=== PATIENT | male | born 1940 | race Caucasian/White ===

== ENCOUNTER 2016-07-20 04:40 | Emergency (ER) | payer MEDICARE, OTHER ==
[~2016-07-20 04:40] MED LIST: ALPRAZOLAM0.25 MG PO; AMARYL1 MG PO; AMLODIPINE BES1 CAP PO; AMLODIPINE BESY1 C17 PO; COREG CR10 M1 PO; EFFEXOR XR75 M1 PO; LEVAQUIN 5500 MG/TA1 PO; TESSALON PERLE100 MG PO; WELCHOL 625MG625 MG PO
[2016-07-20] MEDS ORDERED: ONDANSETRON HYDR4 M1 PO (07:42)
== END 2016-07-20 08:00 | disposition home or self-care (01) ==
LOC: ED 04:40
DX: R11.2 Nausea with vomiting, unspecified (principal)

== ENCOUNTER 2017-02-19 23:25 | Emergency (ER) | payer MEDICARE, OTHER ==
[~2017-02-19] VITALS: Ht 172.7 cm; Wt 100.0 kg
[~2017-02-19 23:25] MED LIST changes: +ONDANSETRON HYDR4 M1 PO
[2017-02-19] MEDS ORDERED: LOSARTAN POTASS50 MG PO (23:53)
[2017-02-19] MEDS ORDERED: OMEPRAZOLE40 MG PO (23:53)
[2017-02-19] MEDS ORDERED: NORVASC 10MG10 MG PO (23:54)
[2017-02-20] MEDS ORDERED: NAPROXEN500 MG PO (02:09)
[2017-02-20 02:35] VITALS: BP 160/89
== END 2017-02-20 02:35 | disposition home or self-care (01) ==
LOC: ED 23:25
DX: M10.041 Idiopathic gout, right hand (principal); E11.9 Type 2 diabetes mellitus without complications; Z79.84 Long term (current) use of oral hypoglycemic drugs; I10 Essential (primary) hypertension; Z87.891 Personal history of nicotine dependence

== ENCOUNTER 2017-03-18 09:51 | Outpatient (RCR) | payer MEDICARE, OTHER ==
[~2017-03-18 09:51] MED LIST changes: +LOSARTAN POTASS50 MG PO; +NAPROXEN500 MG PO; +NORVASC 10MG10 MG PO; +OMEPRAZOLE40 MG PO
== END 2017-03-20 15:16 | disposition home or self-care (01) ==
LOC: OPPGERO 09:51
DX: F33.1 Major depressive disorder, recurrent, moderate (principal); F43.10 Post-traumatic stress disorder, unspecified; X58.XXXD Exposure to other specified factors, subsequent encounter

== ENCOUNTER 2017-03-22 09:00 | Outpatient (RCR) | payer MEDICARE, OTHER | END 2017-04-21 16:23 | disposition still patient (30) | LOC: OPPGERO 09:00 | DX: F33.1 Major depressive disorder, recurrent, moderate (principal); F43.10 Post-traumatic stress disorder, unspecified ==

== ENCOUNTER 2017-04-22 09:57 | Outpatient (RCR) | payer MEDICARE, OTHER | END 2017-05-21 12:59 | LOC: OPPGERO 09:57 | DX: F33.1 Major depressive disorder, recurrent, moderate (principal); F43.10 Post-traumatic stress disorder, unspecified ==

== ENCOUNTER 2017-05-22 09:00 | Outpatient (RCR) | payer MEDICARE, OTHER | END 2017-06-19 15:34 | LOC: OPPGERO 09:00 | DX: F33.1 Major depressive disorder, recurrent, moderate (principal); F43.10 Post-traumatic stress disorder, unspecified ==

== ENCOUNTER 2017-07-23 10:46 | Outpatient (RCR) | payer MEDICARE, OTHER | END 2017-08-19 14:17 | LOC: OPPGERO 10:46 | DX: F33.1 Major depressive disorder, recurrent, moderate (principal); F43.10 Post-traumatic stress disorder, unspecified; K21.9 Gastro-esophageal reflux disease without esophagitis; Z88.2 Allergy status to sulfonamides ==

== ENCOUNTER 2017-08-20 10:17 | Outpatient (RCR) | payer MEDICARE, OTHER | END 2017-09-18 11:18 | LOC: OPPGERO 10:17 | DX: F33.1 Major depressive disorder, recurrent, moderate (principal); F43.10 Post-traumatic stress disorder, unspecified; K21.9 Gastro-esophageal reflux disease without esophagitis; Z88.1 Allergy status to other antibiotic agents; Z88.2 Allergy status to sulfonamides ==

== ENCOUNTER 2017-09-21 09:13 | Outpatient (RCR) | payer MEDICARE, OTHER | END 2017-10-19 13:14 | LOC: OPPGERO 09:13 | DX: F33.1 Major depressive disorder, recurrent, moderate (principal); F43.10 Post-traumatic stress disorder, unspecified; K21.9 Gastro-esophageal reflux disease without esophagitis; N40.0 Benign prostatic hyperplasia without lower urinary tract symptoms; Z88.2 Allergy status to sulfonamides ==

== ENCOUNTER 2017-10-20 08:54 | Outpatient (RCR) | payer MEDICARE, OTHER | END 2017-11-19 13:49 | LOC: OPPGERO 08:54 | DX: F33.1 Major depressive disorder, recurrent, moderate (principal); Z86.51 Personal history of combat and operational stress reaction; K21.9 Gastro-esophageal reflux disease without esophagitis; Z79.899 Other long term (current) drug therapy ==

== ENCOUNTER 2018-07-16 11:43 | Emergency (ER) | payer MEDICARE, OTHER ==
[~2018-07-16] VITALS: Ht 172.7 cm; Wt 105.3 kg
[~2018-07-16 11:43] MED LIST changes: +AMARYL1 M1 PO; -AMARYL1 MG PO; -COREG CR10 M1 PO; +COREG CR10 MG PO; -EFFEXOR XR75 M1 PO; +EFFEXOR XR75 M2 PO
[2018-07-16 12:37] LABS: ALBUMIN 3.8 g/dL (3.5-5.0); CALCIUM 8.8 mg/dL (8.4-10.2); TOTAL BILIRUBIN 0.7 mg/dL (0.2-1.3); TOTAL PROTEIN 6.6 g/dL (6.3-8.2)
[2018-07-16 12:38] LABS: HEMATOCRIT 42.5 % (42.0-52.0); HEMOGLOBIN 14.3 g/dL (13.5-18.0); MEAN CELL VOLUME 91 fl (78-100); MEAN CORPUSCULAR HEMOGLOBIN 31 pg (27-31); MEAN CORPUSCULAR HGB CONC 34 g/dL (33-37); MEAN PLATELET VOLUME 10.3 fl (7.4-10.4); PLATELET COUNT 170 K/mm3 (130-400); RED BLOOD COUNT 4.66 M/mm3 (4.20-5.60); RED CELL DISTRIBUTION WIDTH 13.4 % (11.5-14.5); WHITE BLOOD COUNT 5.7 K/mm3 (4.8-10.8)
[2018-07-16 12:53] LABS: LYMPHOCYTE 33 % (20-51); MONOCYTE 8 % (3-10); NEUTROPHILS 57 % (42-75)
[2018-07-16 15:01] VITALS: BP 181/86
[2018-07-16 21:19] LABS: URINE APPEARANCE CLEAR; URINE BILIRUBIN NEGATIVE (NEGATIVE); URINE BLOOD NEGATIVE (NEGATIVE); URINE COLOR YELLOW; URINE GLUCOSE NEGATIVE (NEGATIVE); URINE KETONE NEGATIVE (NEGATIVE); URINE LEUKOCYTE ESTERASE NEGATIVE (NEGATIVE); URINE NITRATE NEGATIVE (NEGATIVE); URINE PROTEIN(semi-quant) TRACE mg/dL (NEGATIVE); URINE UROBILINOGEN NORMAL (NORMAL)
[2018-07-16 21:20] LABS: URINE MUCUS PRESENT (NOT PRESENT)
[2018-07-17] MEDS ORDERED: ECOTRIN325 M1 PO (16:35)
== END 2018-07-16 15:00 | disposition other institution (70) ==
LOC: ED 11:43
PROVIDERS: Nurse Practitioner Primary Care
DX: F41.8 Other specified anxiety disorders (principal); G45.9 Transient cerebral ischemic attack, unspecified; I10 Essential (primary) hypertension; E11.9 Type 2 diabetes mellitus without complications; Z79.82 Long term (current) use of aspirin; Z88.2 Allergy status to sulfonamides; Z87.891 Personal history of nicotine dependence; Z90.49 Acquired absence of other specified parts of digestive tract
CPT/HCPCS: J2270

== ENCOUNTER 2018-07-16 14:14 | Inpatient (IN) | payer MEDICARE, OTHER ==
[~2018-07-16] VITALS: Ht 172.7 cm; Wt 105.0 kg
[2018-07-16 15:00] VITALS: BP 181/86
[2018-07-16 15:35] VITALS: BP 181/86
[2018-07-16 18:29] VITALS: BP 148/76
[2018-07-16 22:58] VITALS: BP 139/77
[2018-07-17 03:00] VITALS: BP 155/78
[2018-07-17 06:12] VITALS: BP 171/74
[2018-07-17 11:02] VITALS: BP 104/62; BP 168/80
[2018-07-17 14:47] VITALS: BP 176/79
[2018-07-17] MEDS ORDERED: ECOTRIN325 M1 PO (16:35)
[2018-07-17 17:07] VITALS: BP 155/85
== END 2018-07-17 17:38 | disposition home or self-care (01) | DRG 69 ==
LOC: MED/SURG 14:14
PROVIDERS: ADMIT Nurse Practitioner Primary Care
DX: G45.9 Transient cerebral ischemic attack, unspecified (principal); R07.9 Chest pain, unspecified; I10 Essential (primary) hypertension; E78.5 Hyperlipidemia, unspecified; E11.9 Type 2 diabetes mellitus without complications; F41.8 Other specified anxiety disorders; F17.220 Nicotine dependence, chewing tobacco, uncomplicated
CPT/HCPCS: J1650

== ENCOUNTER → 2018-07-19 | Outpatient (CLI) | payer MEDICARE, OTHER ==
[2018-07-17 17:07] VITALS: BP 155/85
[~2018-07-19] MED LIST changes: +ECOTRIN325 M1 PO
== END ==
LOC: VAS 14:12
DX: R55 Syncope and collapse (principal)

== ENCOUNTER 2019-06-21 17:26 | Emergency (ER) | payer MEDICARE, OTHER ==
[~2019-06-21] VITALS: Ht 172.7 cm; Wt 102.3 kg
[2019-06-21 18:49] VITALS: BP 195/93
== END 2019-06-21 18:56 | disposition home or self-care (01) ==
LOC: ED 17:26
DX: H10.89 Other conjunctivitis (principal); I10 Essential (primary) hypertension; F32.9 Major depressive disorder, single episode, unspecified; F43.10 Post-traumatic stress disorder, unspecified; F17.290 Nicotine dependence, other tobacco product, uncomplicated; Z77.098 Contact with and (suspected) exposure to other hazardous, chiefly nonmedicinal, chemicals; Z98.49 Cataract extraction status, unspecified eye

== ENCOUNTER 2019-11-01 22:50 | Emergency (ER) | payer MEDICARE, OTHER ==
[2019-11-01] MEDS ORDERED: ASPIRIN E.C. 8181 MG PO (23:16)
[2019-11-01 23:21] LABS: HEMATOCRIT 40.3 % (42.0-52.0); HEMOGLOBIN 13.7 g/dL (13.5-18.0); MEAN CELL VOLUME 92 fl (78-100); MEAN CORPUSCULAR HEMOGLOBIN 31 pg (27-31); MEAN CORPUSCULAR HGB CONC 34 g/dL (33-37); MEAN PLATELET VOLUME 10.2 fl (7.4-10.4); PLATELET COUNT 178 K/mm3 (130-400); RED BLOOD COUNT 4.39 M/mm3 (4.20-5.60); RED CELL DISTRIBUTION WIDTH 13.6 % (11.5-14.5); WHITE BLOOD COUNT 6.9 K/mm3 (4.8-10.8)
[2019-11-01 23:26] LABS: ALBUMIN 3.8 g/dL (3.4-4.8); POTASSIUM 3.6 mmol/L (3.5-5.1); SODIUM 142 mmol/L (136-145)
[2019-11-01 23:27] LABS: CALCIUM 8.9 mg/dL (8.3-10.5)
[2019-11-01 23:28] LABS: GLUCOSE 198 mg/dL (75-110)
[2019-11-01 23:29] LABS: TOTAL PROTEIN 6.6 g/dL (6.2-8.1)
[2019-11-01 23:30] LABS: CARBON DIOXIDE 24 mmol/L (23-31); TOTAL BILIRUBIN 0.4 mg/dL (0.2-1.2)
[2019-11-01 23:34] LABS: AST-SGOT 26 U/L (5-34)
[2019-11-01 23:35] LABS: ALT/SGPT 30 U/L (0-55); PARTIAL THROMBOPLASTIN TIME 21.6 SECONDS (21.0-32.0); PROTHROMBIN TIME 9.3 SECONDS (9.0-12.0)
[2019-11-01 23:39] LABS: LYMPHOCYTE 37 % (20-51); MONOCYTE 11 % (3-10); NEUTROPHILS 49 % (42-75); OVALOCYTES 1+
[2019-11-01 23:42] LABS: TROPONIN-I < 0.03 ng/mL (<0.030)
[2019-11-01 23:48] LABS: URINE WBC 0 /hpf (0-3)
[2019-11-02 00:06] LABS: URINE APPEARANCE CLEAR; URINE BILIRUBIN NEGATIVE (NEGATIVE); URINE COLOR YELLOW; URINE KETONE NEGATIVE (NEGATIVE); URINE NITRATE NEGATIVE (NEGATIVE); URINE PROTEIN(semi-quant) 1+ mg/dL (NEGATIVE); URINE UROBILINOGEN NORMAL (NORMAL)
[2019-11-02 00:07] LABS: URINE BLOOD TRACE (NEGATIVE); URINE LEUKOCYTE ESTERASE NEGATIVE (NEGATIVE); URINE MUCUS PRESENT (NOT PRESENT)
[2019-11-02 04:15] VITALS: BP 159/87
== END 2019-11-02 04:15 | disposition home or self-care (01) ==
LOC: ED 22:50
PROVIDERS: Nurse Practitioner Family
DX: E11.65 Type 2 diabetes mellitus with hyperglycemia (principal); R00.2 Palpitations; R53.81 Other malaise; I10 Essential (primary) hypertension; F17.220 Nicotine dependence, chewing tobacco, uncomplicated; F43.10 Post-traumatic stress disorder, unspecified; F32.9 Major depressive disorder, single episode, unspecified; Z79.82 Long term (current) use of aspirin; Z90.89 Acquired absence of other organs; Z79.84 Long term (current) use of oral hypoglycemic drugs
CPT/HCPCS: J7120

== ENCOUNTER → 2021-04-09 | Outpatient (CLI) | payer MEDICARE, OTHER ==
[~2021-04-09] MED LIST changes: +ASPIRIN E.C. 8181 MG PO
== END ==
LOC: RAD 09:07
DX: S83.242A Other tear of medial meniscus, current injury, left knee, initial encounter (principal); M17.11 Unilateral primary osteoarthritis, right knee; S72.432A Displaced fracture of medial condyle of left femur, initial encounter for closed fracture

== ENCOUNTER 2021-08-08 17:21 | Emergency (ER) | payer MEDICARE, OTHER ==
[2021-08-08] MEDS ORDERED: HCTZ 25MG25 MG PO (17:32)
[2021-08-08] MEDS ORDERED: CARVEDILOL ER10 MG PO (17:32)
[2021-08-08] MEDS ORDERED: LOSARTAN POTASS50 M1 PO (17:32)
[2021-08-08] MEDS ORDERED: TRULICITY0.75 MG/0. SC (17:32)
[2021-08-08 17:51] LABS: BASO # 0.04 K/mm3 (0.02-0.10); EOS # 0.13 K/mm3 (0.04-0.40); HEMATOCRIT 43.7 % (42.0-52.0); HEMOGLOBIN 14.8 g/dL (13.5-18.0); LYMPH# 2.11 K/mm3 (1.50-4.00); MEAN CELL VOLUME 94 fl (78-100); MEAN CORPUSCULAR HEMOGLOBIN 32 pg (27-31); MEAN CORPUSCULAR HGB CONC 34 g/dL (33-37); MEAN PLATELET VOLUME 9.6 fl (7.4-10.4); MONO # 0.65 K/mm3 (0.20-0.80); NEU # 3.56 K/mm3 (1.40-6.50); PLATELET COUNT 191 K/mm3 (130-400); RED BLOOD COUNT 4.67 M/mm3 (4.20-5.60); RED CELL DISTRIBUTION WIDTH 12.8 % (11.5-14.5); WHITE BLOOD COUNT 6.5 K/mm3 (4.8-10.8)
[2021-08-08 18:04] LABS: POTASSIUM 3.7 mmol/L (3.5-5.1)
[2021-08-08 18:05] LABS: SODIUM 143 mmol/L (136-145)
[2021-08-08 18:06] LABS: CALCIUM 9.2 mg/dL (8.3-10.5)
[2021-08-08 18:07] LABS: GLUCOSE 212 mg/dL (75-110); TOTAL PROTEIN 7.3 g/dL (6.2-8.1)
[2021-08-08 18:08] LABS: CARBON DIOXIDE 27 mmol/L (23-31)
[2021-08-08 18:09] LABS: TOTAL BILIRUBIN 0.7 mg/dL (0.2-1.2)
[2021-08-08 18:12] LABS: AST-SGOT 27 U/L (5-34)
[2021-08-08 18:13] LABS: ALT/SGPT 33 U/L (0-55)
[2021-08-08 18:33] LABS: URINE APPEARANCE CLEAR; URINE BILIRUBIN NEGATIVE (NEGATIVE); URINE BLOOD NEGATIVE (NEGATIVE); URINE COLOR YELLOW; URINE KETONE NEGATIVE (NEGATIVE); URINE LEUKOCYTE ESTERASE NEGATIVE (NEGATIVE); URINE NITRATE NEGATIVE (NEGATIVE); URINE PROTEIN(semi-quant) 1+ (NEGATIVE); URINE UROBILINOGEN NORMAL (NORMAL); URINE WBC 0-1 /hpf (0-3)
[2021-08-08 18:34] LABS: URINE MUCUS PRESENT (NOT PRESENT)
[2021-08-08 19:00] LABS: TROPONIN-I < 0.030 ng/mL (<0.030)
[2021-08-08 19:22] VITALS: BP 118/88
== END 2021-08-08 19:22 | disposition home or self-care (01) ==
LOC: ED 17:21
PROVIDERS: Nurse Practitioner
DX: R53.83 Other fatigue (principal); R53.81 Other malaise; E11.9 Type 2 diabetes mellitus without complications; I25.2 Old myocardial infarction; I10 Essential (primary) hypertension; F32.A Depression, unspecified; Z20.822 Contact with and (suspected) exposure to COVID-19; Z79.899 Other long term (current) drug therapy; Z79.84 Long term (current) use of oral hypoglycemic drugs

== ENCOUNTER → 2021-09-24 | Outpatient (CLI) | payer MEDICARE, OTHER ==
[~2021-09-24] MED LIST changes: +CARVEDILOL ER10 MG PO; +HCTZ 25MG25 MG PO; +LOSARTAN POTASS50 M1 PO; +TRULICITY0.75 MG/0. SC
== END ==
LOC: VAS 12:57 → RAD 09-25 13:00
DX: I51.7 Cardiomegaly (principal)

== ENCOUNTER 2021-10-15 12:52 | Outpatient (RCR) | payer MEDICARE, OTHER | END 2021-10-19 | disposition still patient (30) | LOC: PT | DX: M25.562 Pain in left knee (principal) ==

== ENCOUNTER 2021-10-21 14:00 | Outpatient (RCR) | payer MEDICARE, OTHER | END 2021-11-19 | disposition still patient (30) | LOC: PT | DX: M25.562 Pain in left knee (principal) ==

== ENCOUNTER 2021-11-20 14:44 | Outpatient (RCR) | payer MEDICARE, OTHER | END 2021-12-19 | disposition home or self-care (01) | LOC: PT | DX: M25.562 Pain in left knee (principal) ==

== ENCOUNTER 2021-12-25 14:59 | Outpatient (RCR) | payer MEDICARE, OTHER | END 2022-01-19 | disposition home or self-care (01) | LOC: PT | DX: M17.12 Unilateral primary osteoarthritis, left knee (principal); Z96.652 Presence of left artificial knee joint ==

== ENCOUNTER 2022-09-27 21:52 | Emergency (ER) | payer MEDICARE, OTHER ==
[~2022-09-27] VITALS: Ht 172.7 cm; Wt 104.5 kg
[2022-09-27 22:34] LABS: BASO # 0.03 K/mm3 (0.02-0.10); EOS # 0.21 K/mm3 (0.04-0.40); EOS % 3.1 % (0.0-4.0); HEMATOCRIT 37.7 % (42.0-52.0); HEMOGLOBIN 13.3 g/dL (13.5-18.0); LYMPH# 2.03 K/mm3 (1.50-4.00); MEAN CELL VOLUME 94 fl (78-100); MEAN CORPUSCULAR HEMOGLOBIN 33 pg (27-31); MEAN CORPUSCULAR HGB CONC 35 g/dL (33-37); MEAN PLATELET VOLUME 9.7 fl (7.4-10.4); MONO # 0.95 K/mm3 (0.20-0.80); NEU # 3.49 K/mm3 (1.40-6.50); PLATELET COUNT 162 K/mm3 (130-400); RED CELL DISTRIBUTION WIDTH 12.9 % (11.5-14.5); WHITE BLOOD COUNT 6.7 K/mm3 (4.8-10.8)
[2022-09-27 22:45] LABS: ALBUMIN 3.8 g/dL (3.4-4.8); POTASSIUM 3.4 mmol/L (3.5-5.1)
[2022-09-27 22:46] LABS: CALCIUM 8.9 mg/dL (8.3-10.5)
[2022-09-27 22:47] LABS: TOTAL PROTEIN 6.5 g/dL (6.2-8.1)
[2022-09-27 22:49] LABS: TOTAL BILIRUBIN 0.4 mg/dL (0.2-1.2)
[2022-09-27] MEDS ORDERED: K-TAB20 MEQ PO (23:47)
[2022-09-28 00:20] VITALS: BP 156/85
== END 2022-09-28 00:10 | disposition home or self-care (01) ==
LOC: ED 21:52
PROVIDERS: Family Medicine
DX: R00.2 Palpitations (principal); E87.6 Hypokalemia; I45.10 Unspecified right bundle-branch block; Z86.79 Personal history of other diseases of the circulatory system

== ENCOUNTER → 2023-08-13 | Outpatient (REF) | payer MEDICARE, OTHER ==
[~2023-08-13] MED LIST changes: +K-TAB20 MEQ PO; +NORCO 325 MG-51 TA1 PO
[2023-08-13 12:13] LABS: CALCIUM 9.3 mg/dL (8.3-10.5)
== END ==
LOC: LAB 11:49
PROVIDERS: Family Medicine
DX: I10 Essential (primary) hypertension (principal); E11.9 Type 2 diabetes mellitus without complications

== ENCOUNTER → 2024-02-06 | Outpatient (CLI) | payer MEDICARE, OTHER | LOC: RAD 11:21 | DX: M54.6 Pain in thoracic spine (principal) ==

== ENCOUNTER 2024-02-22 16:26 | Emergency (ER) | payer MEDICARE, OTHER ==
[2024-02-22 18:13] VITALS: BP 170/82
== END 2024-02-22 18:14 | disposition home or self-care (01) ==
LOC: ED 16:26
DX: S00.83XA Contusion of other part of head, initial encounter (principal); W22.8XXA Striking against or struck by other objects, initial encounter; Y93.01 Activity, walking, marching and hiking

== ENCOUNTER → 2024-03-11 | Outpatient (CLI) | payer MEDICARE, OTHER ==
[2024-03-11 13:09] LABS: CALCIUM 9.3 mg/dL (8.3-10.5)
== END ==
LOC: LAB 12:30
PROVIDERS: Family Medicine
DX: I10 Essential (primary) hypertension (principal); E11.9 Type 2 diabetes mellitus without complications

== ENCOUNTER → 2024-04-06 | Outpatient (CLI) | payer MEDICARE, OTHER ==
[2024-04-06 09:54] LABS: HEMATOCRIT 40.4 % (42.0-52.0); HEMOGLOBIN 13.8 g/dL (13.5-18.0); RED BLOOD COUNT 4.26 M/mm3 (4.20-5.60); RED CELL DISTRIBUTION WIDTH 13.2 % (11.5-14.5); WHITE BLOOD COUNT 4.5 K/mm3 (4.8-10.8)
== END ==
LOC: LAB 09:31
PROVIDERS: Family Medicine
DX: R53.83 Other fatigue (principal)

== ENCOUNTER → 2024-10-03 | Outpatient (CLI) | payer MEDICARE, OTHER | LOC: RAD 13:10 | DX: M50.322 Other cervical disc degeneration at C5-C6 level (principal); M50.323 Other cervical disc degeneration at C6-C7 level; M54.81 Occipital neuralgia ==